=== PATIENT | female | born 1980 | race Caucasian/White ===

== ENCOUNTER 2017-11-02 17:19 | Inpatient (IN) | payer OTHER ==
[~2017-11-02] VITALS: Ht 172.7 cm; Wt 69.1 kg
[2017-11-02 17:25] VITALS: BP 134/71
[2017-11-02 18:01] LABS: BASO # 0.1 10*3/uL (0.0-0.1); BASO % 1.2 % (0.0-1.0); EOS # 0.8 10*3/uL (0.0-0.4); EOS % 9.2 % (1.0-4.0); HEMATOCRIT 39.1 % (37.0-47.0); HEMOGLOBIN 13.1 g/dl (12.0-16.0); LYMPH # 1.9 10*3/uL (1.3-4.4); LYMPH % 23.6 % (27.0-41.0); MEAN CORPUSCULAR HGB 26.8 pg (27.0-31.0); MEAN CORPUSCULAR HGB CONC 33.5 g/dl (33.0-37.0); MEAN PLATELET VOLUME 9.5 fl (9.6-12.3); MONO # 0.6 10*3/uL (0.1-1.0); MONO % 7.4 % (3.0-9.0); NEUT # 4.7 10*3/uL (2.3-7.9); NEUT % 57.9 % (47.0-73.0); PLATELET COUNT AUTOMATED 343 10*3/uL (130-400); RED BLOOD COUNT 4.89 10*6/uL (4.10-5.10); RED CELL DISTRI WIDTH 13.8 % (0-14.5); WHITE BLOOD COUNT 8.1 10*3/uL (4.8-10.8)
[2017-11-02 18:16] LABS: ALBUMIN 3.5 gm/dl (3.1-4.5); ALKALINE PHOSPHATASE 84 U/L (45-117); BUN 13 mg/dl (7-24); CHLORIDE 108 mmol/L (98-107); CREATININE 0.91 mg/dL (0.55-1.02); POTASSIUM 4.1 mmol/L (3.5-5.1); SGOT/AST 23 IU/L (3-35); SGPT/ALT 23 U/L (12-78); SODIUM 141 mmol/L (136-145); TOTAL PROTEIN 7.6 gm/dL (6.4-8.2)
[2017-11-02 18:19] LABS: URINE AMPHETAMINES > 1000 (1000ng/ml); URINE BARBITURATES < 200 (200ng/ml); URINE BENZODIAZEPINES < 200 (200ng/ml); URINE CANNABINOIDS (THC) < 50 (50ng/ml); URINE COCAINE < 300 (300ng/ml); URINE METHADONE < 300 (300ng/ml); URINE OPIATES > 300 (300ng/ml); URINE PHENCYCLIDINE < 25 (25ng/ml)
[2017-11-02 18:59] VITALS: BP 106/52
[2017-11-02 19:01] VITALS: BP 106/52
[2017-11-03 00:03] VITALS: BP 116/60
[2017-11-03 04:00] VITALS: BP 103/56
[2017-11-03 08:00] VITALS: BP 112/68
[2017-11-03 16:00] VITALS: BP 126/62
[2017-11-03 20:00] VITALS: BP 99/42
[2017-11-04] VITALS: BP 94/52
[2017-11-04 08:00] VITALS: BP 99/40
[2017-11-04 12:00] VITALS: BP 110/56
[2017-11-04 16:00] VITALS: BP 104/47
[2017-11-04 20:00] VITALS: BP 106/49
[2017-11-05] VITALS: BP 98/50
[2017-11-05 08:00] VITALS: BP 99/57
[2017-11-05] MEDS ORDERED: ROPINIROLE HYD0.5 MG PO (11:36)
[2017-11-05] MEDS ORDERED: TRAZODONE50 MG PO (11:36)
== END 2017-11-05 11:55 | disposition home or self-care (01) | DRG 897 ==
LOC: ED 17:19 → EDHOLD 18:08 → 4E 18:08
PROVIDERS: Physician Assistant
DX: F11.23 Opioid dependence with withdrawal (principal); E87.8 Other disorders of electrolyte and fluid balance, not elsewhere classified; F15.10 Other stimulant abuse, uncomplicated; M79.1 Myalgia; R71.8 Other abnormality of red blood cells; R73.9 Hyperglycemia, unspecified; F17.210 Nicotine dependence, cigarettes, uncomplicated; G25.81 Restless legs syndrome; Z98.51 Tubal ligation status; Z81.1 Family history of alcohol abuse and dependence; Z71.6 Tobacco abuse counseling